=== PATIENT | female | born 1950 | race Caucasian/White ===

== ENCOUNTER 2017-06-10 12:24 | Inpatient (IN) ==
[2017-06-10 14:01] LABS: Basophils % 0.1 %; Eosinophils # 0.1 K/mcL (0.0-0.6); Eosinophils % 0.9 %; Hematocrit 45.5 % (35.3-44.9); Immature Granulocytes % 0.4 % (0-4); Lymphocytes # 2.7 K/mcL (0.6-4.6); Lymphocytes % 22.8 %; Mean Corpuscular HGB Conc 30.8 g/dL (31.6-35.5); Mean Corpuscular Hemoglobin 28.5 pg (28.0-33.3); Mean Corpuscular Volume 92.5 fL (83.0-100.0); Mean Platelet Volume 9.1 fL (9.4-12.4); Monocytes % 8.1 %; Neutrophils # 8.2 K/mcL (1.6-8.9); Platelet Count 268 K/mcL (140-400); Red Blood Count 4.92 M/mcL (3.82-4.97); Red Cell Distribution Width 15.6 % (11.5-14.5); Segmented Neutrophils % 67.7 %
--- NOTE | 2017-06-10 14:11 | Emergency Department Note ---
Disposition Clinical Impression: Fracture of right ankle Qualifiers: Encounter type: initial encounter Fracture type: closed Qualified Code(s): S82.891A - Other fracture of right lower leg, initial encounter for closed fracture Disposition: Admitted As Inpatient Condition: Fair Referrals: Oumar Flanagan MD [Primary Care Provider] - Time of Disposition: 14:14 General Adult HPI - General Chief complaint: ED Extremity Injury, Lower Stated complaint: "broken ankle yesterday/sent by Dr. Garcia Time Seen by Provider: 06/10/17 13:14 Source: patient Limitations: no limitations Nursing Notes Reviewed: Yes Vital Signs Reviewed: Yes - History of Present Illness HPI Narrative: 67-year-old female sent to the emergency department from director of primary office for admission to the hospital. Yesterday she had a mechanical fall and suffered a fracture of her right ankle. She was seen at another facility and referred to see Dr. garcia today. After evaluating the imaging he decided that she needed surgical repair. She is having trouble maneuvering at home and wanted her admitted to the hospital to prepare for surgery tomorrow. She was therefore sent to the emergency department. Patient denies any other injuries with the incident. Onset (ago): day(s) Location: lower extremity Pain Severity: moderate Pain Scale: 9 Quality: aching Consistency: constant Improves with: nothing Worsens with: nothing Associated symptoms: Reports: denies other symptoms Treatments Prior to Arrival: none - Related Data Home Medications Medication Instructions Recorded Confirmed Olmesartan Medoxomil [Benicar] 40 mg PO DAILY 11/27/16 06/10/17 Pantoprazole Sodium [Protonix] 20 mg PO DAILY 11/27/16 06/10/17 clonazePAM [Clonazepam] 1 mg PO BID 11/27/16 06/10/17 Aspirin [Lo-Dose Aspirin EC] 81 mg PO DAILY 06/10/17 06/10/17 Levothyroxine [Synthroid] 125 mcg PO DAILY 06/10/17 06/10/17 Allergies Allergy/AdvReac Type Severity Reaction Status Date / Time alprazolam [From Xanax] Allergy Rash Verified 06/10/17 13:54 Amoxicillin Allergy Hives Verified 06/10/17 13:54 celecoxib [From Celebrex] Allergy Hives Verified 06/10/17 13:54 cephalexin [From Keflex] Allergy Hives Verified 06/10/17 13:54 ciprofloxacin Allergy Difficulty Verified 06/10/17 13:54 Breathing codeine Allergy Difficulty Verified 06/10/17 13:54 Breathing iodine Allergy Hives Verified 06/10/17 13:54 levofloxacin [From Levaquin] Allergy HIVES, Verified 06/10/17 13:54 DIFFICULTY BREATHING lidocaine Allergy Seizure Verified 06/10/17 13:54 metronidazole [From Flagyl] Allergy ITCH,DIFFICULTY Verified 06/10/17 13:54 BREATHING midazolam [From Versed] Allergy STINGING Verified 06/10/17 13:54 SKIN Oxycodone [From Percocet] Allergy DRY THROAT Verified 06/10/17 13:54 Penicillins Allergy Hives Verified 06/10/17 13:54 rofecoxib [From Vioxx] Allergy Hives Verified 06/10/17 13:54 shellfish derived Allergy Anaphylaxis Verified 06/10/17 13:54 [place] Allergy Anaphylaxis Verified 06/10/17 13:54 Sulfa (Sulfonamide Allergy HIVES, Verified 06/10/17 13:54 Antibiotics) DIFFICULTY IN BREATHE morphine AdvReac HALLUCINATE Verified 06/10/17 13:54 All systems ED: reviewed and negative except as stated. Constitutional: Denies: fever Cardiovascular: Denies: chest pain, palpitations Past Medical History - Past Medical History Attestation: Yes The following information was validated with the patient. Medical history: Reports: arthritis, fibromyalgia, GERD, hypertension, osteoporosis, other Surgical history: Reports: colectomy Psychiatric history: Reports: anxiety, depression, panic disorder - Social History Smoking Status: Never smoker Smokeless Tobacco Status: No Alcohol use: Reports: none Drug use: Reports: none Physical Exam - General Limitations: no limitations General appearance: alert - Head Head exam: atraumatic, normocephalic - Eye Eye exam: Present: normal appearance - ENT ENT exam: normal exam, normal oropharynx - Neck Neck exam: Present: normal inspection - Chest Chest inspection: Present: normal inspection, symmetric chest wall rise - Respiratory Respiratory exam: Present: normal lung sounds bilaterally. Absent: respiratory distress - Cardiovascular Cardiovascular exam: Present: regular rate - Abdominal Exam Abdominal exam: Present: soft, Non-Tender - Expanded Lower Extremity Exam 1 - tender Ankle exam: Present: other (Lower leg and foot are in a rigid brace placed by the orthopedist. Dorsal pedal pulses present.) - Neurological Exam Neurological exam: Present: alert, oriented X3 - Psychiatric Psychiatric exam: Present: normal affect - Skin Skin exam: Present: warm, dry Course - Reevaluation(s) Reevaluation #1: Discussed with the hospitalist for admission Time: 14:14 Vital Signs Temperature 99.6 F 06/10/17 12:29 Pulse Rate 90 06/10/17 12:29 Respiratory Rate 18 06/10/17 12:29 Blood Pressure 170/93 06/10/17 12:29 O2 Sat by Pulse Oximetry 94 06/10/17 12:29 Temperature 99.6 F 06/10/17 12:29 Pulse Rate 90 06/10/17 12:29 Respiratory Rate 18 06/10/17 12:29 Blood Pressure 170/93 06/10/17 12:29 O2 Sat by Pulse Oximetry 94 06/10/17 12:29 Oxygen Delivery Oxygen Delivery Room Air Medical Decision Making - Lab Data Result diagrams: 06/10/17 13:42 Lab Results 06/10/17 Range/Units 13:42 WBC 12.0 H (4.3-11.1) K/mcL RBC 4.92 (3.82-4.97) M/mcL Hgb 14.0 (11.5-15.4) g/dL Hct 45.5 H (35.3-44.9) % MCV 92.5 (83.0-100.0) fL MCH 28.5 (28.0-33.3) pg MCHC 30.8 L (31.6-35.5) g/dL RDW 15.6 H (11.5-14.5) % Plt Count 268 (140-400) K/mcL MPV 9.1 L (9.4-12.4) fL Immature Gran % 0.4 (0-4) % Seg Neutrophils % 67.7 % Lymphocytes % 22.8 % Monocytes % 8.1 % Eosinophils % 0.9 % Basophils % 0.1 % Neutrophils # 8.2 (1.6-8.9) K/mcL Lymphocytes # 2.7 (0.6-4.6) K/mcL Monocytes # 1.0 (0.0-1.3) K/mcL Eosinophils # 0.1 (0.0-0.6) K/mcL Basophils # 0.0 (0.0-0.2) K/mcL
[2017-06-10 14:21] LABS: BUN/Creatinine Ratio 21 (6-26); Blood Urea Nitrogen 16 mg/dL (8-23); Calcium 9.2 mg/dL (8.6-10.3); Carbon Dioxide 27 mEq/L (23-29); Chloride 107 mEq/L (98-107); Glucose 105 mg/dL (70-105); Osmolality,Calculated 296 (280-300); Potassium 3.6 mEq/L (3.5-5.1); Sodium 142 mEq/L (136-145); eGFR For African Americans > 60 (> 60); eGFR For Non-African Americans > 60 (> 60)
[2017-06-10] MEDS ORDERED: traMADol 50 MG TABLET PO ONE (14:30)
[2017-06-10] MEDS ORDERED: Ondansetron 4 MG/2 ML VIAL IVP PRN (14:53)
[2017-06-10] MEDS ORDERED: Naloxone 0.4 MG/ML INJ IVP PRN (14:53)
[2017-06-10] MEDS ORDERED: *HR* HYDROcodone/Acet 5/325 mg TABLET PO PRN (14:53)
--- NOTE | 2017-06-10 15:12 | Internal Med History&Physical ---
Date of Encounter: 06/10/17 Time of Encounter: 14:00 Assessment and Plan (1) Fracture of right ankle Current visit: Yes Status: Acute place the pt into Med Surg for observation I could not find any records here to review regarding her Ankle fx will obtain images [facility] and Dr. Garcia office for now continue symptomatic and supportive care NPO after midnight IV hydration IV pain medication is needed Podiatry on board possible ankle repair in AM Qualifiers: Encounter type: initial encounter Fracture type: closed Qualified Code(s) : S82.891A - Other fracture of right lower leg, initial encounter for closed fracture (2) Right ankle pain Current visit: Yes Status: Acute Qualifiers: Chronicity: acute Qualified Code(s): M25.571 - Pain in right ankle and joints of right foot (3) HTN (hypertension) Current visit: Yes Status: Acute Fairly controlled to pain resumed on her home medications we will give her hydralazine IV PRN for uncontrolled blood pressure Qualifiers: Hypertension type: essential hypertension Qualified Code(s): I10 - Essential (primary) hypertension (4) Anxiety Current visit: Yes Status: Acute Resumed home medications Internal Medicine - H&P: HPI Chief complaint: Rt ankle pain Admitted From: Emergency Dept Plans for Post Hospital Care: Home History of present illness: Ms. Cox is a 67 year old female with known PMH of HTN, DJD, Osteoporosis, Hypothyroidism and anxiety who presented to ER with Rt ankle pain since yesterday. Pt had a fall at her home while she stepped in a hole, her ankle got twisted and fell down. Since then pt has been having severe Rt ankle pain and unbale to bare any weight. Pt went to local urgent care center, where she found to have Rt ankle fx. So pt was placed on Split and recommend to f/u with Senior Payroll Administrator. Pt was seen by Dr. Garcia at his office today, and recommend to admitted under hospitalist service here. He is planning on doing ankle repair in AM/ Past Med Surg Social Fam HX - Past Medical History Medical history: arthritis, fibromyalgia, GERD, hypertension, osteoporosis, other Psychiatric history: anxiety, depression, panic disorder - Past Surgical History Surgical History: colectomy - Social History Smoking Status: Never smoker Smokeless Tobacco Status: No Alcohol use: none Drug use: none - Family History Daughter Living Status: Still Living Hx Family Endocrine Disorder: Yes Internal Medicine - H&P: Meds Olmesartan Medoxomil [Benicar] 40 mg PO DAILY 11/27/16 [History] Pantoprazole Sodium [Protonix] 20 mg PO DAILY 11/27/16 [History] clonazePAM [Clonazepam] 1 mg PO BID 11/27/16 [History] Aspirin [Lo-Dose Aspirin EC] 81 mg PO DAILY 06/10/17 [History] Levothyroxine [Synthroid] 125 mcg PO DAILY 06/10/17 [History] 3 Allergy/AdvReac Type Severity Reaction Status Date / Time alprazolam [From Xanax] Allergy Rash Verified 06/10/17 13:54 Amoxicillin Allergy Hives Verified 06/10/17 13:54 celecoxib [From Celebrex] Allergy Hives Verified 06/10/17 13:54 cephalexin [From Keflex] Allergy Hives Verified 06/10/17 13:54 ciprofloxacin Allergy Difficulty Verified 06/10/17 13:54 Breathing codeine Allergy Difficulty Verified 06/10/17 13:54 Breathing iodine Allergy Hives Verified 06/10/17 13:54 levofloxacin [From Levaquin] Allergy HIVES, Verified 06/10/17 13:54 DIFFICULTY BREATHING lidocaine Allergy Seizure Verified 06/10/17 13:54 metronidazole [From Flagyl] Allergy ITCH,DIFFICULTY Verified 06/10/17 13:54 BREATHING midazolam [From Versed] Allergy STINGING Verified 06/10/17 13:54 SKIN Oxycodone [From Percocet] Allergy DRY THROAT Verified 06/10/17 13:54 Penicillins Allergy Hives Verified 06/10/17 13:54 rofecoxib [From Vioxx] Allergy Hives Verified 06/10/17 13:54 shellfish derived Allergy Anaphylaxis Verified 06/10/17 13:54 [place] Allergy Anaphylaxis Verified 06/10/17 13:54 Sulfa (Sulfonamide Allergy HIVES, Verified 06/10/17 13:54 Antibiotics) DIFFICULTY IN BREATHE morphine AdvReac HALLUCINATE Verified 06/10/17 13:54 All Systems PM: A 10-system review of systems was performed and is negative for pertinent findings except as documented above in the HPI. Review of systems: All the systems are reviewed everything is benign except the systems and symptoms I mentioned in the history of present illness - Constitutional Vitals: Temp Pulse Resp BP Pulse Ox 99.6 F 90 18 170/93 94 06/10/17 12:29 06/10/17 12:29 06/10/17 12:29 06/10/17 12:29 06/10/17 12:29 General appearance: Present: mild distress (Pain), A&O X 3, answers questions appropriately - Head Head exam: Present: atraumatic, normal inspection - Neck Neck exam general surgery: Present: supple. Absent: tenderness - Respiratory Respiratory exam: Present: decreased breath sounds. Absent: rales, respiratory distress, rhonchi, wheezes - Cardiovascular Cardiovascular exam: Present: RRR, +S1, +S2. Absent: tachycardia - GI/Abdominal GI/Abdominal exam: Present: normal bowel sounds, soft. Absent: rebound, rigid, tenderness - Extremities Exam Extremities exam: Present: tenderness (Right ankle region). Absent: calf tenderness, pedal edema Additional comments: Splint placed on her right ankle.. able to wiggle her toes in both feet - Back Exam Back exam: Absent: CVA tenderness (L), CVA tenderness (R) - Neurological Exam Neurological exam: Present: alert, oriented X3 - Psychiatric Psychiatric exam: Present: normal affect, normal mood Internal Med - H&P Results - Labs CBC & Chem 7: 06/10/17 13:42 06/10/17 13:42
[2017-06-10] MEDS ORDERED: *HR* FentaNYL (PF) 100 MCG/2 ML VIAL IVP PRN (15:27)
[2017-06-10] MEDS: 0.9 % Sodium Chloride 1,000 ML IVC SCH (16:08)
[2017-06-10] MEDS: Ketorolac 15 MG/ML VIAL IVP PRN (18:30)
[2017-06-11] MEDS: Ketorolac 15 MG/ML VIAL IVP PRN ×3 (00:32→13:12)
[2017-06-11] MEDS: 0.9 % Sodium Chloride 1,000 ML IVC SCH (00:33)
[2017-06-11 01:18] LABS: Basophils % 0.2 %; Eosinophils # 0.2 K/mcL (0.0-0.6); Eosinophils % 1.6 %; Hematocrit 38.2 % (35.3-44.9); Immature Granulocytes % 0.3 % (0-4); Lymphocytes # 2.7 K/mcL (0.6-4.6); Lymphocytes % 26.5 %; Mean Corpuscular HGB Conc 31.4 g/dL (31.6-35.5); Mean Corpuscular Hemoglobin 28.5 pg (28.0-33.3); Mean Corpuscular Volume 90.7 fL (83.0-100.0); Mean Platelet Volume 9.2 fL (9.4-12.4); Monocytes # 0.8 K/mcL (0.0-1.3); Neutrophils # 6.4 K/mcL (1.6-8.9); Platelet Count 231 K/mcL (140-400); Red Blood Count 4.21 M/mcL (3.82-4.97); Red Cell Distribution Width 15.7 % (11.5-14.5); Segmented Neutrophils % 63.4 %
[2017-06-11 01:36] LABS: BUN/Creatinine Ratio 20 (6-26); Blood Urea Nitrogen 14 mg/dL (8-23); Calcium 8.1 mg/dL (8.6-10.3); Carbon Dioxide 24 mEq/L (23-29); Chloride 110 mEq/L (98-107); Glucose 112 mg/dL (70-105); Osmolality,Calculated 291 (280-300); Potassium 3.8 mEq/L (3.5-5.1); Sodium 140 mEq/L (136-145); eGFR For African Americans > 60 (> 60); eGFR For Non-African Americans > 60 (> 60)
[2017-06-11 09:23] LABS: Bilirubin,Urine Negative (Negative); Blood,Urine Negative (Negative); Clarity,Urine Clear (Clear); Color,Urine Yellow (Yellow); Glucose,Urine (UA) Normal (Normal); Ketones,Urine Negative (Negative); Leukocyte Esterase,Urine Small (Negative); Nitrite,Urine Negative (Negative); Protein,Urine Negative (Neg-Trace); Specific Gravity,Urine 1.007 (1.010-1.025); Urobilinogen,Urine Normal (Normal)
[2017-06-11 09:26] LABS: Bacteria,Urine None Seen per hpf (None-Few); Hyaline Casts,Urine None Seen per lpf (None-Few); RBC,Urine 0-3 per hpf (0-3); Squamous Epithelial Cell,Urine Many per lpf (None-Few); WBC,Urine 15-30 per hpf (0-3)
[2017-06-11] MEDS: Acetaminophen 325 MG TABLET PO PRN (10:22)
--- NOTE | 2017-06-11 10:51 | Internal Med Progress Note ---
<Margarito Shelby - Last Filed: 06/11/17 13:51> Date of Encounter: 06/11/17 Time of Encounter: 10:49 - Assessment and plan (1) Fracture of right ankle Current Visit: Yes Status: Acute Assessment and plan: Patient was admitted to the hospital for a right ankle fracture It is my understanding of the patient was sent in by Dr. kaufman for admission and possible surgical repair Patient has been nothing by mouth since midnight We will continue with IV pain medication when necessary Surgical repair per podiatry Qualifiers: Encounter type: initial encounter Fracture type: closed Qualified Code(s) : S82.891A - Other fracture of right lower leg, initial encounter for closed fracture (2) Right ankle pain Current Visit: Yes Status: Acute Assessment and plan: Secondary to ankle fracture. Qualifiers: Chronicity: acute Qualified Code(s): M25.571 - Pain in right ankle and joints of right foot (3) HTN (hypertension) Current Visit: Yes Status: Acute Assessment and plan: Patient's blood pressure is reasonably controlled Continue with home medications. Hydralazine IV when necessary has been ordered for uncontrolled hypertension. Qualifiers: Hypertension type: essential hypertension Qualified Code(s): I10 - Essential (primary) hypertension (4) Anxiety Current Visit: Yes Status: Acute Assessment and plan: Continue with home medications. - Subjective Interval history: Patient states that her pain is been significantly better. She states that she is not feeling better overall since her pain is under control. Patient states that she injured her right ankle when she was in her backyard and she fell by getting her foot stuck in a hole. Patient states that her understanding is that she has a surgery add-on and will only allow Dr. Kaufman to operate on her. - Constitutional Vitals: Temp Pulse Resp BP Pulse Ox 98.4 F 77 16 158/77 94 06/11/17 07:30 06/11/17 07:30 06/11/17 07:30 06/11/17 07:30 06/11/17 07:30 General appearance: Present: mild distress (Pain), A&O X 3, answers questions appropriately - Head Head exam: Present: atraumatic, normocephalic - Neck Neck exam general surgery: Present: full ROM, normal inspection, trachea midline - Respiratory Respiratory exam: Present: CTAB. Absent: accessory muscle use, rales, rhonchi, wheezes - Cardiovascular Cardiovascular exam: Present: RRR, +S1, +S2. Absent: diastolic murmur, gallop, rubs, systolic murmur - GI/Abdominal GI/Abdominal exam: Present: normal bowel sounds, soft, no peritoneal signs. Absent: distended, tenderness - Extremities Exam Extremities exam: Present: warm. Absent: pedal edema, tenderness Additional comments: Patient's right foot is in a boot. - Neurological Exam Neurological exam: Present: alert, oriented X3, no focal deficits. Absent: facial droop, speech deficit - Psychiatric Psychiatric exam: Present: normal affect, normal mood - Skin Skin exam: Present: dry, intact, warm Internal Medicine: Result - Labs CBC & Chem 7: 06/11/17 00:58 06/11/17 00:58 Labs: Short CBC 06/11/17 Range/Units 00:58 WBC 10.0 (4.3-11.1) K/mcL Hgb 12.0 D (11.5-15.4) g/dL Hct 38.2 (35.3-44.9) % Plt Count 231 (140-400) K/mcL Neutrophils # 6.4 (1.6-8.9) K/mcL BMP 06/11/17 00:58 Sodium 140 Potassium 3.8 Chloride 110 H Carbon Dioxide 24 BUN 14 Creatinine 0.71 Glucose 112 H Calcium 8.1 L Urine 06/11/17 Range/Units 09:00 Urine Color Yellow (Yellow) Urine Clarity Clear (Clear) Urine pH 7.0 (5.0-8.0) pH Units Ur Specific [place] 1.007 L (1.010-1.025) Urine Protein Negative (Neg-Trace) mg/dL Urine Glucose (UA) Normal (Normal) mg/dL Consult Discharge Plan - Plan Referrals: Oumar Flanagan MD [Primary Care Provider] - <Eliel Stein - Last Filed: 06/11/17 18:18> Date of Encounter: 06/11/17 - Assessment and plan (1) Fracture of right ankle Current Visit: Yes Status: Acute Qualifiers: Encounter type: initial encounter Fracture type: closed Qualified Code(s) : S82.891A - Other fracture of right lower leg, initial encounter for closed fracture (2) HTN (hypertension) Current Visit: Yes Status: Acute Qualifiers: Hypertension type: essential hypertension Qualified Code(s): I10 - Essential (primary) hypertension (3) Avulsion of soft tissue of left lower leg Current Visit: No Status: Acute Qualifiers: Encounter type: initial encounter Qualified Code(s): S81.802A - Unspecified open wound, left lower leg, initial encounter (4) Anxiety Current Visit: Yes Status: Acute - Constitutional Vitals: Temp Pulse Resp BP Pulse Ox 97.7 F 100 16 179/84 96 06/11/17 11:04 06/11/17 16:52 06/11/17 16:52 06/11/17 16:52 06/11/17 16:52 Internal Medicine: Result - Labs CBC & Chem 7: 06/11/17 00:58 06/11/17 00:58 Labs: Short CBC 06/11/17 Range/Units 00:58 WBC 10.0 (4.3-11.1) K/mcL Hgb 12.0 D (11.5-15.4) g/dL Hct 38.2 (35.3-44.9) % Plt Count 231 (140-400) K/mcL Neutrophils # 6.4 (1.6-8.9) K/mcL BMP 06/11/17 00:58 Sodium 140 Potassium 3.8 Chloride 110 H Carbon Dioxide 24 BUN 14 Creatinine 0.71 Glucose 112 H Calcium 8.1 L Urine 06/11/17 Range/Units 09:00 Urine Color Yellow (Yellow) Urine Clarity Clear (Clear) Urine pH 7.0 (5.0-8.0) pH Units Ur Specific [place] 1.007 L (1.010-1.025) Urine Protein Negative (Neg-Trace) mg/dL Urine Glucose (UA) Normal (Normal) mg/dL - Impressions Impressions Fluoroscopy 06/11/17 00:00 IMPRESSION: Intraprocedural fluoroscopic spot images as above. See separate procedure report for more information. D/ / 06/11/2017 18:07:25 José Miguel Allan MD / dulce Interpreting Provider: José Miguel Allan MD - Attending Attestation I examined this patient and my medical decision-making was reviewed with the Resident Physician on 06/11/17. I agree with the documented findings, disposition and treatment plan as described except to the extent set forth below. Ms Cox is currently admitted for acute ankle fracture. She remains moderate to high risk due to potential for worsening clinical status. Ms Cox is having a lot of pain. She is to go to OR later today. No fever or chills. Exam Alert Mod distress due to pain Mucus membranes dry Heart not tachy No wheeze I/P 1. Ankle fracture Further diagnoses and plan as above.
[2017-06-11] MEDS ORDERED: *HR* HYDROmorphone 2 MG TABLET PO PRN (13:47)
--- NOTE | 2017-06-11 15:09 | Podiatry Consult Note ---
Date of Encounter: 06/11/17 Time of Encounter: 15:08 Assessment and Plan (1) Fracture of right ankle Current visit: Yes Status: Acute The fracture was discussed with the patient at length and the treatment plan as well. The surgery of open reduction, internal fixation of the right bimalleolar ankle fracture was discussed and explained to the patient in depth. It was decided to perform the surgery today.Patient was informed of the risks and complications of surgery. These may include but are not limited to the following; nerve damage, numbness, tingling, RSD/CRPS, loss of motor function, loss of toe, loss of limb, loss of life, ischemia, wound healing issues, infection, scarring, keloid formation, continued pain, arthritis, non-union, mal-union, prominent hardware, displaced hardware, reaction to hardware, the need to remove hardware, bruising, continued limp, the need for future surgery, over correction, under correction, chronic swelling, the need for physical therapy, stiffness of joints, ulceration, slow healing, wound dehiscence, reaction to implant, reaction to sutures. The patient was informed of the possible conservative treatments available which may include but are not limited to the following: Orthotics, bracing, non -weight bearing, physical therapy, padding, taping, steroid injections, NSAIDS, casting. The patient was given the option to seek a second opinion. It was explained that surgery is an art and not an exact science therefore results cannot be guaranteed. All the patients questions and concerns were addressed. Patient agrees to have the surgery despite the possible risks and complications. Absolutely no guarantees were given or implied. -Due to the patient's osteopenia and fall risk the patient will need evaluation from physical therapy/occupational therapy prior to discharge. -The patient will likely have to return to a half-way or care facility unless she is cleared by physical therapy/occupational therapy which is not likely. -The patient will need to remain nonweightbearing for at least 6 weeks after the surgery. Qualifiers: Encounter type: initial encounter Fracture type: closed Qualified Code(s) : S82.891A - Other fracture of right lower leg, initial encounter for closed fracture History of Present Illness Chief complaint: ankle fracture, right HPI: Ms. Cox is a 67 year old female who presented to my clinic yesterday with right ankle fracture. The patient related that she had incontinence, dizziness , difficulty getting into her home or moving without the use of a wheelchair. The patient also related a history of hypertension. Due to the patient's dizziness and inability to return home due to her instability the patient was admitted. Past Med Surg Social Fam HX - Past Medical History Medical history: arthritis, fibromyalgia, GERD, hypertension, osteoporosis, other Psychiatric history: anxiety, depression, panic disorder - Past Surgical History Surgical History: colectomy - Social History Smoking Status: Never smoker Smokeless Tobacco Status: No Alcohol use: none Drug use: none - Family History Daughter Living Status: Still Living Hx Family Endocrine Disorder: Yes (DMI) Medications and Allergies Olmesartan Medoxomil [Benicar] 40 mg PO DAILY 11/27/16 [History] Pantoprazole Sodium [Protonix] 20 mg PO DAILY 11/27/16 [History] clonazePAM [Clonazepam] 1 mg PO BID 11/27/16 [History] Aspirin [Lo-Dose Aspirin EC] 81 mg PO DAILY 06/10/17 [History] Levothyroxine [Synthroid] 125 mcg PO DAILY 06/10/17 [History] 3 Allergy/AdvReac Type Severity Reaction Status Date / Time alprazolam [From Xanax] Allergy Rash Verified 06/10/17 13:54 Amoxicillin Allergy Hives Verified 06/10/17 13:54 celecoxib [From Celebrex] Allergy Hives Verified 06/10/17 13:54 cephalexin [From Keflex] Allergy Hives Verified 06/10/17 13:54 ciprofloxacin Allergy Difficulty Verified 06/10/17 13:54 Breathing codeine Allergy Difficulty Verified 06/10/17 13:54 Breathing hydrocodone Allergy Difficulty Verified 06/10/17 16:20 Breathing iodine Allergy Hives Verified 06/10/17 13:54 levofloxacin [From Levaquin] Allergy HIVES, Verified 06/10/17 13:54 DIFFICULTY BREATHING lidocaine Allergy Seizure Verified 06/10/17 13:54 metronidazole [From Flagyl] Allergy ITCH,DIFFICULTY Verified 06/10/17 13:54 BREATHING midazolam [From Versed] Allergy STINGING Verified 06/10/17 13:54 SKIN Oxycodone [From Percocet] Allergy DRY THROAT Verified 06/10/17 13:54 Penicillins Allergy Hives Verified 06/10/17 13:54 rofecoxib [From Vioxx] Allergy Hives Verified 06/10/17 13:54 shellfish derived Allergy Anaphylaxis Verified 06/10/17 13:54 [place] Allergy Anaphylaxis Verified 06/10/17 13:54 Sulfa (Sulfonamide Allergy HIVES, Verified 06/10/17 13:54 Antibiotics) DIFFICULTY IN BREATHE fentanyl AdvReac Mild Itching Verified 06/10/17 16:51 morphine AdvReac HALLUCINATE Verified 06/10/17 13:54 All Systems Reviewed: The remainder of the systems were reviewed and are negative Physical Exam - Constitutional Vitals: Temp Pulse Resp BP Pulse Ox 97.7 F 75 16 171/90 97 06/11/17 11:04 06/11/17 11:04 06/11/17 11:04 06/11/17 11:04 06/11/17 11:04 Exam: Pedal pulses palpable. Capillary fill time intact to digits 1 through 5 bilaterally. There are no open lesions, abrasions, or ulcerations. There is noted be significant ecchymosis along the medial aspect of the right ankle and possible hematoma. Radiographic exam demonstrates dislocation fracture of the right ankle joint, bimalleolar. Pain and edema noted at the bimalleolar ankle fracture site. Patient is able to dorsiflex and plantar flex digits and has sensation intact to light touch. Results - Labs Result Diagrams: 06/11/17 00:58 06/11/17 00:58 Labs: Abnormal lab results MCHC 31.4 g/dL (31.6-35.5) L 06/11/17 00:58 RDW 15.7 % (11.5-14.5) H 06/11/17 00:58 MPV 9.2 fL (9.4-12.4) L 06/11/17 00:58 Chloride 110 mEq/L (98-107) H 06/11/17 00:58 Glucose 112 mg/dL (70-105) H 06/11/17 00:58 Calcium 8.1 mg/dL (8.6-10.3) L 06/11/17 00:58 Ur Specific [place] 1.007 (1.010-1.025) L 06/11/17 09:00 Ur Leukocyte Esterase Small (Negative) H 06/11/17 09:00 Urine Microscopic WBC 15-30 per hpf (0-3) H 06/11/17 09:00 Ur Squamous Epith Cells Many per lpf (None-Few) H 06/11/17 09:00 H & H 06/11/17 Range/Units 00:58 Hgb 12.0 D (11.5-15.4) g/dL Hct 38.2 (35.3-44.9) % All other labs normal. Consult Discharge Plan - Plan Referrals: Oumar Flanagan MD [Primary Care Provider] -
[2017-06-11] MEDS ORDERED: *HR* HYDROmorphone 2 MG TABLET PO ONE (15:17)
--- NOTE | 2017-06-11 15:46 | Anesthesia Evaluation PreOp ---
Date of Encounter: 06/11/17 Time of Encounter: 15:43 - Past History Planned Operation: Right ankle ORIF Cardiac History: Denies any Significant Hx (arthritis, fibromyalgia, GERD, hypertension, osteoporosis Psychiatric history: anxiety, depression, panic disorder), HTN Pulmonary History: Denies Any Significant HX [employer] History: Other (a/d, panicdisorder) Other Medical History: GERD, Other (Fibromyalgia, RA) Anesthesia History: No Prior Anesthetic Complications, Past Anesthesia (olectomy ) : No Alcohol Use: none Drug use: none Medications and Allergies Olmesartan Medoxomil [Benicar] 40 mg PO DAILY 11/27/16 [History] Pantoprazole Sodium [Protonix] 20 mg PO DAILY 11/27/16 [History] clonazePAM [Clonazepam] 1 mg PO BID 11/27/16 [History] Aspirin [Lo-Dose Aspirin EC] 81 mg PO DAILY 06/10/17 [History] Levothyroxine [Synthroid] 125 mcg PO DAILY 06/10/17 [History] 3 Allergy/AdvReac Type Severity Reaction Status Date / Time alprazolam [From Xanax] Allergy Rash Verified 06/10/17 13:54 Amoxicillin Allergy Hives Verified 06/10/17 13:54 celecoxib [From Celebrex] Allergy Hives Verified 06/10/17 13:54 cephalexin [From Keflex] Allergy Hives Verified 06/10/17 13:54 ciprofloxacin Allergy Difficulty Verified 06/10/17 13:54 Breathing codeine Allergy Difficulty Verified 06/10/17 13:54 Breathing hydrocodone Allergy Difficulty Verified 06/10/17 16:20 Breathing iodine Allergy Hives Verified 06/10/17 13:54 levofloxacin [From Levaquin] Allergy HIVES, Verified 06/10/17 13:54 DIFFICULTY BREATHING lidocaine Allergy Seizure Verified 06/10/17 13:54 metronidazole [From Flagyl] Allergy ITCH,DIFFICULTY Verified 06/10/17 13:54 BREATHING midazolam [From Versed] Allergy STINGING Verified 06/10/17 13:54 SKIN Oxycodone [From Percocet] Allergy DRY THROAT Verified 06/10/17 13:54 Penicillins Allergy Hives Verified 06/10/17 13:54 rofecoxib [From Vioxx] Allergy Hives Verified 06/10/17 13:54 shellfish derived Allergy Anaphylaxis Verified 06/10/17 13:54 [place] Allergy Anaphylaxis Verified 06/10/17 13:54 Sulfa (Sulfonamide Allergy HIVES, Verified 06/10/17 13:54 Antibiotics) DIFFICULTY IN BREATHE fentanyl AdvReac Mild Itching Verified 06/10/17 16:51 morphine AdvReac HALLUCINATE Verified 06/10/17 13:54 - Meds/Allergy Pre-op Review Medications Reviewed: Yes Allergies Reviewed: Yes Beta Blockers on Current Med List: No Anesthesia Results - Labs 06/11/17 00:58 06/11/17 00:58 Anesthesia Exam Vital Signs/O2 Sat, Most Current Temp Pulse Resp BP Pulse Ox 97.7 F 75 16 171/90 97 06/11/17 11:04 06/11/17 11:04 06/11/17 11:04 06/11/17 11:04 06/11/17 11:04 NPO (# of Hours): > 8 hrs Pain Scale: 0 Pain Scale Used: Numeric (1 - 10) - HEENT Pupil (Motor): Pupils equal, EOMI Mallampati: II Teeth: Normal Oral Opening: Greater than 3 - [employer] LOC: Oriented [employer] Motor: Normal RUE, Normal LUE, Normal RLE, Normal LLE, Normal Face [employer] Sensory: Normal: RUE, LUE, RLE, LLE, Face - Cardiac Rhythm: Regular Murmur: None JVD: No Carotid Bruit: No - Pulmonary Breath Sounds: bilateral Clear Respiratory Effort: Symmetrical Anesthesia Assess/Plan ASA Score: 3 Modified [place] Scale for Level of Consciousness: Cooperative, oriented, and tranquil Anesthetic Plan: General, Regional Autologous Blood: Yes Monitoring Plan: Standard Monitors Recovery Plan: PACU
[2017-06-11] MEDS ORDERED: Bupivacaine/Clonidine Syringe 1 EACH SYRINGE ONE (16:20)
[2017-06-11] MEDS ORDERED: *HR* Propofol 200 MG/20 ML VIAL IVP ONE (16:21)
[2017-06-11] MEDS ORDERED: *HR* FentaNYL (PF) 100 MCG/2 ML VIAL ONE (16:21)
[2017-06-11] MEDS ORDERED: Ondansetron 4 MG/2 ML VIAL ONE (16:21)
[2017-06-11] MEDS ORDERED: Dexamethasone 4 MG/ML VIAL ONE (16:21)
[2017-06-11] MEDS ORDERED: *HR* Midazolam HCl 2 MG/2 ML VIAL ONE (16:21)
[2017-06-11] MEDS ORDERED: Lidocaine -MPF 2% 2 ML VIAL ONE (16:21)
[2017-06-11] MEDS ORDERED: Ketorolac 30 MG/ML VIAL ONE (16:21)
[2017-06-11] MEDS ORDERED: ROPIVACAINE HCL/PF 0.5% 30 ML VIAL ONE ×2 (16:25→16:28)
[2017-06-11] MEDS ORDERED: Clindamycin 600 MG/50 ML 600 MG/50 ML IV.SOLN IVPB ONE ×2 (16:55→16:56)
[2017-06-11] MEDS ORDERED: *HR* FentaNYL (PF) 100 MCG/2 ML VIAL IVP PRN (17:27)
--- NOTE | 2017-06-11 17:30 | Anesthesia Procedures ---
Date of Encounter: 06/11/17 Time of Encounter: 16:34 Procedures: Anesthesia - Nerve Block Procedure Date: 06/11/17 Time: 16:34 Surgical Procedure: right ankle ORIF Checklist: Correct Patient Identifier, Correct procedure, History checked Correct side: Right Blood Thinner: No Monitor Applied: BP, Pulse Oximetry Supplemental Oxygen via Nasal Cannula (L/min): 2 Sedation: Fentanyl (mcg): 100 Indication: Post Op Analgesia Block Type: Popliteal, Other (abductor canal ) Catheter placed: No Sterile Technique: Yes Ultrasound used: Yes Anatomy identified: Yes Visual spread of Local: Yes Neuro Stimulation: No Nerve Stimulator Range: 0.2 - 0.4 mA Blood on Needle Aspiration: No Smooth Injection of Local: Yes Pain with Injection of Local: No Prep: Chlorhexadine Needle: 21 x 100 mm Stimuplex Local: Ropivacaine (50ml of 0.5% rop plain, 30ml for popiteal, 20ml abductor canal ) Volume (cc): 50 Number of Attempts: 1 Complications: None/effective block Vitals: vss, request block per surgeon
[2017-06-11] MEDS: *HR* Promethazine 25 MG/ML VIAL IVP PRN (18:36)
--- NOTE | 2017-06-11 18:55 | Anesthesia Evaluation Post Op ---
Date of Encounter: 06/11/17 Time of Encounter: 18:54 - Vital Signs Vital Signs: Vital Signs/O2 Sat, Most Current Temp Pulse Resp BP Pulse Ox 98.1 F 89 16 145/92 97 06/11/17 18:44 06/11/17 18:44 06/11/17 18:44 06/11/17 18:44 06/11/17 18:44 - Lungs Lungs: Clear Ascult./Percussion - Airway Airway: Non-obstructed - Cardiovascular Regular Rate - Mental Status Mental Status: Alert & Oriented, Answers Appropriately - Pain Pain Scale: 0 Pain Scale used: Numeric (1 - 10) - Nausea Vomiting Nausea Vomiting: Not Present - Hydration Hydration: Ice chips, Mccain catheter - Discharge PostOp Status: Transfer Patient to floor
[2017-06-12 01:55] LABS: Hematocrit 37.7 % (35.3-44.9); Hemoglobin 12.2 g/dL (11.5-15.4); Immature Granulocytes % 0.4 % (0-4); Lymphocytes # 0.9 K/mcL (0.6-4.6); Lymphocytes % 9.3 %; Mean Corpuscular HGB Conc 32.4 g/dL (31.6-35.5); Mean Corpuscular Hemoglobin 29.1 pg (28.0-33.3); Mean Platelet Volume 9.2 fL (9.4-12.4); Monocytes # 0.2 K/mcL (0.0-1.3); Monocytes % 1.7 %; Neutrophils # 8.2 K/mcL (1.6-8.9); Platelet Count 228 K/mcL (140-400); Red Blood Count 4.19 M/mcL (3.82-4.97); Segmented Neutrophils % 88.6 %
[2017-06-12 02:12] LABS: BUN/Creatinine Ratio 16 (6-26); Blood Urea Nitrogen 10 mg/dL (8-23); Calcium 8.3 mg/dL (8.6-10.3); Carbon Dioxide 25 mEq/L (23-29); Chloride 110 mEq/L (98-107); Glucose 148 mg/dL (70-105); Osmolality,Calculated 294 (280-300); Potassium 4.3 mEq/L (3.5-5.1); Sodium 141 mEq/L (136-145); eGFR For African Americans > 60 (> 60); eGFR For Non-African Americans > 60 (> 60)
[2017-06-12] MEDS: Acetaminophen 325 MG TABLET PO PRN (06:44)
[2017-06-12] MEDS: Aspirin 81 MG TAB.CHEW PO SCH (08:24)
--- NOTE | 2017-06-12 08:50 | Operative Note ---
Date of procedure: 06/11/17 Pre-op diagnosis: Right ankle fracture with subluxation/syndesmotic injury. Post-op diagnosis: same Procedure: Open reduction, internal fixation of right ankle fracture. Open repair of syndesmosis/subluxation. Implants: Tad plate with associated screws Complications: None Anesthesia: DESTINEY Surgeon: John Garcia Was there an occupational therapist's assistant present: No Estimated blood loss (cc): 10 Specimen: none Condition: stable Disposition: floor Procedure in Detail: The patient was administered IV antibiotics. The patient was transported to the operative room and placed on operating table in the position. Following general anesthesia the foot was scrubbed prepped and draped in the usual aseptic fashion. A timeout was performed. The lower extremity was raised to 60 degrees for hemostasis and exsanguinated utilizing an Esmarch bandage. The pneumatic tourniquet was inflated. The leg was lowered to the table. An incision was made over the fibula and deepened through subcutaneous tissue with care taken to identify and retract all vital neurovascular structures. The fibula was reduced utilizing a lobster claw. Once the fibula was reduced and fixated with a neutralization plate the attention was directed to the medial malleolus. A small incision was made over the medial malleolus and deepened through subcutaneous tissue with care taken to identify and retract all vital neurovascular structures. 2 guidewires were placed in the medial malleolus screw fixation was placed utilizing the guidewires. After sufficient fixation was noted at the medial malleolus the attention was directed to the syndesmosis. The syndesmosis was tested and noted to be insufficient, an open syndesmotic repair was performed and 2 screws were then placed to reduce the syndesmosis. Due to the patient's osteopenic bone 2 screws were utilized. In general most of the patient's bone was very osteopenic. The incision sites were then irrigated with copious amounts of normal saline and closed in a layered fashion. A dry sterile dressing was applied. The pneumatic tourniquet was deflated and a hyperemic response was noted to all digits. The patient was placed in a cam boot. The patient tolerated the procedure and anesthesia well and was transported to the recovery room with vital signs stable and vascular status intact to both feet. The patient will be readmitted per anesthesia. The patient will keep the dressings clean, dry, intact until the follow-up appointment in 1-2 weeks. The patient's weightbearing status will be strict nonweightbearing. The patient will need a physical therapy/occupational therapy consult. Patient may need to go to a care facility after surgical intervention. The patient will need to follow up with me 1 week after discharge.
--- NOTE | 2017-06-12 08:58 | Internal Med Progress Note ---
<Margarito Shelby - Last Filed: 06/12/17 08:56> Date of Encounter: 06/12/17 Time of Encounter: 08:56 - Assessment and plan (1) Fracture of right ankle Current Visit: Yes Status: Acute Assessment and plan: Patient was admitted to the hospital for a right ankle fracture Patient has had surgical repair by Dr Brownlee. Patient is to remain nonweight bearing on the right lower extremity. PO Dilaudid for pain Patient will need to go to a rehab facility when D/C. Due to it being Wednesday this may not happen until Wednesday. Qualifiers: Encounter type: initial encounter Fracture type: closed Qualified Code(s) : S82.891A - Other fracture of right lower leg, initial encounter for closed fracture (2) Right ankle pain Current Visit: Yes Status: Acute Assessment and plan: Secondary to ankle fracture. Ankle pain has improved after surgery and having the a nerve block Qualifiers: Chronicity: acute Qualified Code(s): M25.571 - Pain in right ankle and joints of right foot (3) HTN (hypertension) Current Visit: Yes Status: Acute Assessment and plan: Patient's blood pressure is reasonably controlled Continue with home medications. Hydralazine IV when necessary has been ordered for uncontrolled hypertension. Qualifiers: Hypertension type: essential hypertension Qualified Code(s): I10 - Essential (primary) hypertension (4) Anxiety Current Visit: Yes Status: Acute Assessment and plan: Continue with home medications. - Subjective Interval history: Patient states that her pain is been significantly better. She states that her nerve block is still in place and has provided significant relief to her pain in her distal right lower extremity. Patient is in agreement with going to a rehabilitation center when she is discharged. Patient is expressed interest in going to rehabilitation facility that is in [facility]. - Constitutional Vitals: Temp Pulse Resp BP Pulse Ox 98.5 F 73 17 120/67 98 06/12/17 06:33 06/12/17 06:33 06/12/17 06:33 06/12/17 06:33 06/12/17 06:33 General appearance: Present: mild distress (Pain), A&O X 3, answers questions appropriately - Head Head exam: Present: atraumatic, normocephalic - Neck Neck exam general surgery: Present: full ROM, normal inspection, trachea midline - Respiratory Respiratory exam: Present: CTAB. Absent: accessory muscle use, rales, rhonchi, wheezes - Cardiovascular Cardiovascular exam: Present: RRR, +S1, +S2. Absent: diastolic murmur, gallop, rubs, systolic murmur - GI/Abdominal GI/Abdominal exam: Present: normal bowel sounds, soft, no peritoneal signs. Absent: distended, tenderness - Extremities Exam Extremities exam: Present: warm. Absent: pedal edema, tenderness Additional comments: Patient's right lower extremity is in a boot after having surgery yesterday. - Neurological Exam Neurological exam: Present: altered, oriented X3, no focal deficits. Absent: facial droop, speech deficit - Psychiatric Psychiatric exam: Present: normal affect, normal mood - Skin Skin exam: Present: dry, intact, warm Internal Medicine: Result - Labs CBC & Chem 7: 06/12/17 01:03 06/12/17 01:03 Labs: Short CBC 06/12/17 Range/Units 01:03 WBC 9.2 (4.3-11.1) K/mcL Hgb 12.2 (11.5-15.4) g/dL Hct 37.7 (35.3-44.9) % Plt Count 228 (140-400) K/mcL Neutrophils # 8.2 (1.6-8.9) K/mcL BMP 06/12/17 01:03 Sodium 141 Potassium 4.3 Chloride 110 H Carbon Dioxide 25 BUN 10 Creatinine 0.63 Glucose 148 H Calcium 8.3 L Urine 06/11/17 Range/Units 09:00 Urine Color Yellow (Yellow) Urine Clarity Clear (Clear) Urine pH 7.0 (5.0-8.0) pH Units Ur Specific [place] 1.007 L (1.010-1.025) Urine Protein Negative (Neg-Trace) mg/dL Urine Glucose (UA) Normal (Normal) mg/dL - Impressions Impressions Fluoroscopy 06/11/17 00:00 IMPRESSION: Intraprocedural fluoroscopic spot images as above. See separate procedure report for more information. D/ / 06/11/2017 18:07:25 José Miguel Allan MD / [facility] Interpreting Provider: José Miguel Allan MD - VTE Documentation of Mechanical Device: Intermittent pneumatic compression device Consult Discharge Plan - Plan Referrals: Oumar Flanagan MD [Primary Care Provider] - <Eliel Stein - Last Filed: 06/12/17 16:17> Date of Encounter: 06/12/17 - Assessment and plan (1) Fracture of right ankle Current Visit: Yes Status: Acute Qualifiers: Encounter type: subsequent encounter Fracture type: closed Qualified Code (s): S82.891D - Other fracture of right lower leg, subsequent encounter for closed fracture with routine healing (2) HTN (hypertension) Current Visit: Yes Status: Acute Qualifiers: Hypertension type: essential hypertension Qualified Code(s): I10 - Essential (primary) hypertension (3) Avulsion of soft tissue of left lower leg Current Visit: No Status: Acute Qualifiers: Encounter type: subsequent encounter Qualified Code(s): S81.802D - Unspecified open wound, left lower leg, subsequent encounter (4) Anxiety Current Visit: Yes Status: Acute - Constitutional Vitals: Temp Pulse Resp BP Pulse Ox 98.0 F 76 16 159/86 95 06/12/17 11:28 06/12/17 11:28 06/12/17 11:28 06/12/17 11:28 06/12/17 11:28 Internal Medicine: Result - Labs CBC & Chem 7: 06/12/17 01:03 06/12/17 01:03 Labs: Short CBC 06/12/17 Range/Units 01:03 WBC 9.2 (4.3-11.1) K/mcL Hgb 12.2 (11.5-15.4) g/dL Hct 37.7 (35.3-44.9) % Plt Count 228 (140-400) K/mcL Neutrophils # 8.2 (1.6-8.9) K/mcL BMP 06/12/17 01:03 Sodium 141 Potassium 4.3 Chloride 110 H Carbon Dioxide 25 BUN 10 Creatinine 0.63 Glucose 148 H Calcium 8.3 L - Impressions Impressions Fluoroscopy 06/11/17 00:00 IMPRESSION: Intraprocedural fluoroscopic spot images as above. See separate procedure report for more information. D/ / 06/11/2017 18:07:25 José Miguel Allan MD / [facility] Interpreting Provider: José Miguel Allan MD - Attending Attestation I examined this patient and my medical decision-making was reviewed with the Resident Physician on 06/12/17. I agree with the documented findings, disposition and treatment plan as described except to the extent set forth below. Ms Cox is currently admitted for acute R ankle fracture s/p ORIF. She remains moderate to high risk due to potential for worsening clinical status. Ms Cox is doing OK. She is requesting to have abx. I explained that she does not need them at this time and we would start them if there was any concern for infection. Also she would have received something around OR. Otherwise she has no new issues. No fever or chills. Had some bleeding this AM and is waiting for podiatry to come see her. Exam alert Comfortable Mucus membranes dry Heart not tachy No wheeze I/P 1. R ankle fracture s/p ORIF 2. HTN Further diagnoses and plan as above.
[2017-06-12] MEDS: clonazePAM 1 MG TABLET PO PRN ×2 (10:02→22:10)
[2017-06-12] MEDS: *HR* HYDROmorphone 2 MG TABLET PO PRN ×3 (11:25→19:48)
[2017-06-12] MEDS: Ketorolac 15 MG/ML VIAL IVP PRN ×2 (13:28→20:54)
[2017-06-13] MEDS: *HR* HYDROmorphone 2 MG TABLET PO PRN ×3 (04:39→23:04)
[2017-06-13] MEDS: Aspirin 81 MG TAB.CHEW PO SCH (07:26)
--- NOTE | 2017-06-13 09:38 | Internal Med Progress Note ---
<HeronGingern - Last Filed: 06/13/17 09:35> Date of Encounter: 06/13/17 Time of Encounter: 09:35 - Assessment and plan (1) Fracture of right ankle Current Visit: Yes Status: Acute Assessment and plan: Patient was admitted to the hospital for a right ankle fracture Patient has had surgical repair by Dr Brownlee. Patient is to remain nonweight bearing on the right lower extremity. PO Dilaudid for pain Patient will need to go to a rehab facility when D/C. Due to it being Wednesday this may not happen until Wednesday. Qualifiers: Encounter type: subsequent encounter Fracture type: closed Qualified Code (s): S82.891D - Other fracture of right lower leg, subsequent encounter for closed fracture with routine healing (2) Right ankle pain Current Visit: Yes Status: Acute Assessment and plan: Secondary to ankle fracture. Pain is controlled with PO dilaudid Qualifiers: Chronicity: acute Qualified Code(s): M25.571 - Pain in right ankle and joints of right foot (3) HTN (hypertension) Current Visit: Yes Status: Acute Assessment and plan: Patient's blood pressure is reasonably controlled Continue with home medications. Hydralazine IV when necessary has been ordered for uncontrolled hypertension. Qualifiers: Hypertension type: essential hypertension Qualified Code(s): I10 - Essential (primary) hypertension (4) Anxiety Current Visit: Yes Status: Acute Assessment and plan: Continue with home medications. - Subjective Interval history: Patient states that her pain has come back normal for nerve block is worn off. However she does state that the by mouth pain medication has been helping. She states that she had some bleeding to her right foot and her boot had to be removed. She states that she feels like her foot will feel better when it goes back into the throat. Patient plans on going to a rehabilitation center upon discharge. - Constitutional Vitals: Temp Pulse Resp BP Pulse Ox 97.8 F 71 16 113/79 92 06/13/17 06:33 06/13/17 06:33 06/13/17 06:33 06/13/17 06:33 06/13/17 06:33 General appearance: Present: A&O X 3, no acute distress, answers questions appropriately - Head Head exam: Present: atraumatic, normocephalic - Neck Neck exam general surgery: Present: full ROM, normal inspection, trachea midline - Respiratory Respiratory exam: Present: CTAB. Absent: accessory muscle use, rales, rhonchi, wheezes - Cardiovascular Cardiovascular exam: Present: RRR, +S1, +S2. Absent: diastolic murmur, gallop, rubs, systolic murmur - GI/Abdominal GI/Abdominal exam: Present: normal bowel sounds, soft, no peritoneal signs. Absent: distended, tenderness - Extremities Exam Extremities exam: Present: warm. Absent: pedal edema Additional comments: Patient's right foot is in an Octavio wrap after having surgery 2 days ago. Patient has normal sensation in her toes on the right foot. - Neurological Exam Neurological exam: Present: alert, oriented X3, no focal deficits. Absent: facial droop, speech deficit - Psychiatric Psychiatric exam: Present: normal affect, normal mood - Skin Skin exam: Present: dry, intact, warm Internal Medicine: Result - Labs CBC & Chem 7: 06/12/17 01:03 06/12/17 01:03 - VTE Documentation of Mechanical Device: Intermittent pneumatic compression device Consult Discharge Plan - Plan Referrals: Oumar Flanagan MD [Primary Care Provider] - <Eliel Stein - Last Filed: 06/13/17 17:15> Date of Encounter: 06/13/17 - Assessment and plan (1) Fracture of right ankle Current Visit: Yes Status: Acute Qualifiers: Encounter type: subsequent encounter Fracture type: closed Qualified Code (s): S82.891D - Other fracture of right lower leg, subsequent encounter for closed fracture with routine healing (2) HTN (hypertension) Current Visit: Yes Status: Acute Qualifiers: Hypertension type: essential hypertension Qualified Code(s): I10 - Essential (primary) hypertension (3) Avulsion of soft tissue of left lower leg Current Visit: No Status: Acute Qualifiers: Encounter type: subsequent encounter Qualified Code(s): S81.802D - Unspecified open wound, left lower leg, subsequent encounter (4) Anxiety Current Visit: Yes Status: Acute - Constitutional Vitals: Temp Pulse Resp BP Pulse Ox 98.4 F 77 17 159/80 93 06/13/17 15:29 06/13/17 15:29 06/13/17 15:29 06/13/17 15:29 06/13/17 15:29 Internal Medicine: Result - Labs CBC & Chem 7: 03/10/18 01:03 06/12/17 01:03 - Attending Attestation I examined this patient and my medical decision-making was reviewed with the Resident Physician on 06/13/17. I agree with the documented findings, disposition and treatment plan as described except to the extent set forth below. Ms Cox is currently admitted for acute R ankle fracture. She is s/p ORIF. She remains moderate to high risk due to potential for worsening clinical status. Ms Cox is resting comfortably. No fever or chills. To go to SNF for rehab. Had some bleeding last night and boot off at times. Exam alert. Comfortable Mucus membranes dry Heart reg No wheeze I/P 1. R ankle fracture s/p ORIF Further diagnoses and plan as above.
[2017-06-13] MEDS: Ketorolac 15 MG/ML VIAL IVP PRN ×2 (12:54→19:01)
--- NOTE | 2017-06-13 15:18 | Podiatry Progress Note ---
Date of Encounter: 06/13/17 Time of Encounter: 15:16 - Assessment and Plan (1) Fracture of right ankle Current Visit: Yes Status: Acute -Due to the patient's osteopenia and fall risk the patient will need to remain nonweightbearing for approximately 6 weeks after the time of surgery.. -The patient is okay for discharge to care facility. -The patient will need to follow-up within a week of discharge. Qualifiers: Encounter type: subsequent encounter Fracture type: closed Qualified Code (s): S82.891D - Other fracture of right lower leg, subsequent encounter for closed fracture with routine healing Subjective Principal diagnosis: right ankle fracture Interval history: Patient seen at bedside. Patient relates that she is still having some throbbing. Patient denies any nausea, vomiting, fever, chills, shortness of breath, chest pain, or calf pain. Patient relates that her ankle feels more stable and his cam boot. Objective - Vital Signs Vital Signs: Vital Signs Temp Pulse Resp BP Pulse Ox 06/13/17 10:52 98.2 F 74 16 119/74 92 06/13/17 06:33 97.8 F 71 16 113/79 92 06/13/17 00:03 98.3 F 71 17 132/67 91 06/12/17 18:38 97.7 F 85 17 165/82 95 Intake and Output 06/12/17 06/13/17 06/13/17 22:59 07:59 15:59 Intake Total 100 / 100 Output Total 200 / 200 Balance -100 / -100 Intake: Oral 100 / 100 Output: Urine 200 / 200 Other: Meal Lunch Percent of Meal Consumed 50% - Exam Exam: Vascular exam-edema noted, capillary fill time is immediate to digits one through 5 bilaterally. Dermatologic exam-the incision site is no longer draining. No strikethrough noted on the dressing. Neurologic exam-sensation is grossly intact to light touch. Musculoskeletal exam-no pain with manual calf compression. - Lab Result Diagrams: 06/12/17 01:03 06/12/17 01:03 Labs: Abnormal lab results RDW 15.0 % (11.5-14.5) H 06/12/17 01:03 MPV 9.2 fL (9.4-12.4) L 06/12/17 01:03 Chloride 110 mEq/L (98-107) H 06/12/17 01:03 Glucose 148 mg/dL (70-105) H 06/12/17 01:03 Calcium 8.3 mg/dL (8.6-10.3) L 06/12/17 01:03 Ur Specific [place] 1.007 (1.010-1.025) L 06/11/17 09:00 Ur Leukocyte Esterase Small (Negative) H 06/11/17 09:00 Urine Microscopic WBC 15-30 per hpf (0-3) H 06/11/17 09:00 Ur Squamous Epith Cells Many per lpf (None-Few) H 06/11/17 09:00 - VTE Documentation of Mechanical Device: Intermittent pneumatic compression device Consult Discharge Plan - Plan Referrals: Oumar Flanagan MD [Primary Care Provider] -
--- NOTE | 2017-06-13 15:26 | Podiatry Progress Note ---
Date of Encounter: 06/12/17 Time of Encounter: 15:24 - Assessment and Plan (1) Fracture of right ankle Current Visit: Yes Status: Acute -Due to the patient's osteopenia and fall risk the patient will need to remain nonweightbearing for approximately 6 weeks after the time of surgery.. -The patient is okay for discharge to care facility. -The patient will need to follow-up within a week of discharge. Qualifiers: Encounter type: subsequent encounter Fracture type: closed Qualified Code (s): S82.891D - Other fracture of right lower leg, subsequent encounter for closed fracture with routine healing Subjective Principal diagnosis: right ankle fracture Interval history: Patient seen at bedside. Patient relates that she is still having some throbbing. Patient denies any nausea, vomiting, fever, chills, shortness of breath, chest pain, or calf pain. Patient relates that her ankle feels more stable and his cam boot. Objective - Vital Signs Vital Signs: Vital Signs Temp Pulse Resp BP Pulse Ox 06/13/17 10:52 98.2 F 74 16 119/74 92 06/13/17 06:33 97.8 F 71 16 113/79 92 06/13/17 00:03 98.3 F 71 17 132/67 91 06/12/17 18:38 97.7 F 85 17 165/82 95 Intake and Output 06/12/17 06/13/17 06/13/17 22:59 07:59 15:59 Intake Total 100 / 100 Output Total 200 / 200 Balance -100 / -100 Intake: Oral 100 / 100 Output: Urine 200 / 200 Other: Meal Lunch Percent of Meal Consumed 50% - Exam Exam: Vascular exam-edema noted, capillary fill time is immediate to digits one through 5 bilaterally. Dermatologic no strikethrough noted.. Neurologic exam- sensation is grossly intact to light touch. Musculoskeletal exam-no pain with manual calf compression. - Lab Result Diagrams: 06/12/17 01:03 06/12/17 01:03 Labs: Abnormal lab results RDW 15.0 % (11.5-14.5) H 06/12/17 01:03 MPV 9.2 fL (9.4-12.4) L 06/12/17 01:03 Chloride 110 mEq/L (98-107) H 06/12/17 01:03 Glucose 148 mg/dL (70-105) H 06/12/17 01:03 Calcium 8.3 mg/dL (8.6-10.3) L 06/12/17 01:03 Ur Specific [place] 1.007 (1.010-1.025) L 06/11/17 09:00 Ur Leukocyte Esterase Small (Negative) H 06/11/17 09:00 Urine Microscopic WBC 15-30 per hpf (0-3) H 06/11/17 09:00 Ur Squamous Epith Cells Many per lpf (None-Few) H 06/11/17 09:00 - VTE Documentation of Mechanical Device: Intermittent pneumatic compression device Consult Discharge Plan - Plan Referrals: Oumar Flanagan MD [Primary Care Provider] -
[2017-06-13] MEDS: clonazePAM 1 MG TABLET PO PRN (20:13)
[2017-06-13] MEDS: *HR* Heparin 5,000 UNIT/ML VIAL SQ SCH (21:12)
[2017-06-14 03:44] LABS: Basophils % 0.4 %; Eosinophils # 0.2 K/mcL (0.0-0.6); Eosinophils % 2.5 %; Hematocrit 37.6 % (35.3-44.9); Hemoglobin 11.6 g/dL (11.5-15.4); Immature Granulocytes % 0.4 % (0-4); Lymphocytes # 2.7 K/mcL (0.6-4.6); Lymphocytes % 31.7 %; Mean Corpuscular HGB Conc 30.9 g/dL (31.6-35.5); Mean Corpuscular Volume 90.6 fL (83.0-100.0); Mean Platelet Volume 8.8 fL (9.4-12.4); Monocytes # 0.6 K/mcL (0.0-1.3); Monocytes % 6.9 %; Neutrophils # 4.9 K/mcL (1.6-8.9); Platelet Count 252 K/mcL (140-400); Red Blood Count 4.15 M/mcL (3.82-4.97); Red Cell Distribution Width 15.4 % (11.5-14.5); Segmented Neutrophils % 58.1 %
[2017-06-14 04:04] LABS: BUN/Creatinine Ratio 25 (6-26); Blood Urea Nitrogen 17 mg/dL (8-23); Calcium 8.5 mg/dL (8.6-10.3); Carbon Dioxide 27 mEq/L (23-29); Chloride 106 mEq/L (98-107); Glucose 98 mg/dL (70-105); Osmolality,Calculated 288 (280-300); Potassium 3.8 mEq/L (3.5-5.1); Sodium 138 mEq/L (136-145); eGFR For African Americans > 60 (> 60); eGFR For Non-African Americans > 60 (> 60)
[2017-06-14] MEDS: Ketorolac 15 MG/ML VIAL IVP PRN ×3 (04:13→18:41)
[2017-06-14] MEDS: *HR* Heparin 5,000 UNIT/ML VIAL SQ SCH ×3 (06:47→20:27)
[2017-06-14] MEDS: Aspirin 81 MG TAB.CHEW PO SCH (09:00)
[2017-06-14] MEDS: *HR* HYDROmorphone 2 MG TABLET PO PRN ×3 (09:00→20:27)
--- NOTE | 2017-06-14 09:43 | Discharge Summary ---
Date of Encounter: 06/14/17 Time of Encounter: 09:15 - Discharge Diagnosis (1) Fracture of right ankle Priority: Primary Status: Acute Qualifiers: Encounter type: subsequent encounter Fracture type: closed Qualified Code (s): S82.891D - Other fracture of right lower leg, subsequent encounter for closed fracture with routine healing (2) HTN (hypertension) Priority: Secondary Status: Chronic Qualifiers: Hypertension type: essential hypertension Qualified Code(s): I10 - Essential (primary) hypertension (3) Avulsion of soft tissue of left lower leg Priority: Secondary Status: Chronic Qualifiers: Encounter type: subsequent encounter Qualified Code(s): S81.802D - Unspecified open wound, left lower leg, subsequent encounter (4) Anxiety Priority: Secondary Status: Chronic Hospital course: Ms. Cox is a 67 year old female presented to ED with severe ankle pain. She had fallen the day before. She was found to have fracture R ankle and admitted for further evaluation and treatment. Ms Cox was admitted to med surg. She was given pain meds and went to OR for ORIF. She tolerated well and was felt needed SNF at discharge. She will be discharged to SNF for further care. Discharge discussed with: patient, nurse - Time Spent with Patient Total time spent providing and/or coordinating discharge services: 41min - Discharge Medications Prescriptions: HYDROmorphone [Dilaudid] 2 mg PO Q4HR PRN 2 Days #10 tablet PRN Reason: Moderate Pain clonazePAM [Clonazepam] 1 mg PO BID 2 Days #4 tab[facility] Home Medications: Olmesartan Medoxomil [Benicar] 40 mg PO DAILY 11/27/16 [History] Pantoprazole Sodium [Protonix] 20 mg PO DAILY 11/27/16 [History] Aspirin [Lo-Dose Aspirin EC] 81 mg PO DAILY 06/10/17 [History] Levothyroxine [Synthroid] 125 mcg PO DAILY 06/10/17 [History] Acetaminophen [Tylenol] 650 mg PO Q6HR PRN tablet 06/14/17 [Rx] DiphenhydraMINE [Benadryl] 25 mg PO Q6HR PRN capsule 06/14/17 [Rx] HYDROmorphone [Dilaudid] 2 mg PO Q4HR PRN 2 Days #10 tablet 06/14/17 [Rx] clonazePAM [Clonazepam] 1 mg PO BID 2 Days #4 tab.rapdis 06/14/17 [Rx] Allergies/Adverse Reactions: 3 Allergy/AdvReac Type Severity Reaction Status Date / Time alprazolam [From Xanax] Allergy Rash Verified 06/10/17 13:54 Amoxicillin Allergy Hives Verified 06/10/17 13:54 celecoxib [From Celebrex] Allergy Hives Verified 06/10/17 13:54 cephalexin [From Keflex] Allergy Hives Verified 06/10/17 13:54 ciprofloxacin Allergy Difficulty Verified 06/10/17 13:54 Breathing codeine Allergy Difficulty Verified 06/10/17 13:54 Breathing hydrocodone Allergy Difficulty Verified 06/10/17 16:20 Breathing iodine Allergy Hives Verified 06/10/17 13:54 levofloxacin [From Levaquin] Allergy HIVES, Verified 06/10/17 13:54 DIFFICULTY BREATHING lidocaine Allergy Seizure Verified 06/10/17 13:54 metronidazole [From Flagyl] Allergy ITCH,DIFFICULTY Verified 06/10/17 13:54 BREATHING midazolam [From Versed] Allergy STINGING Verified 06/10/17 13:54 SKIN Oxycodone [From Percocet] Allergy DRY THROAT Verified 06/10/17 13:54 Penicillins Allergy Hives Verified 06/10/17 13:54 rofecoxib [From Vioxx] Allergy Hives Verified 06/10/17 13:54 shellfish derived Allergy Anaphylaxis Verified 06/10/17 13:54 [place] Allergy Anaphylaxis Verified 06/10/17 13:54 Sulfa (Sulfonamide Allergy HIVES, Verified 06/10/17 13:54 Antibiotics) DIFFICULTY IN BREATHE fentanyl AdvReac Mild Itching Verified 06/10/17 16:51 morphine AdvReac HALLUCINATE Verified 06/10/17 13:54 Date of admission: 06/12/17 18:17 Primary care physician: Oumar Flanagan, Consults: Sessions Discharging clinician: Eliel Stein Anticipated date of discharge: 06/15/17 - Constitutional Vitals: Temp Pulse Resp BP Pulse Ox 98.3 F 76 18 147/88 95 06/14/17 07:09 06/14/17 07:09 06/14/17 07:09 06/14/17 07:09 06/14/17 07:09 General appearance: Present: A&O X 3, no acute distress, answers questions appropriately - Head Head exam: Present: normocephalic - Eye Eye exam: Present: conjuntiva pink - ENT ENT exam: Present: mucous membranes dry - Respiratory Respiratory exam: Present: CTAB. Absent: rales, rhonchi, wheezes - Cardiovascular Cardiovascular exam: Present: RRR. Absent: tachycardia - GI/Abdominal GI/Abdominal exam: Present: soft. Absent: tenderness - Extremities Exam Extremities exam: Present: warm - Neurological Exam Neurological exam: Present: alert, oriented X3 - Skin Skin exam: Present: dry, warm - Patient Status Disposition: Transfer SNF Condition: Fair Functional capacity at discharge: uses cane/walker Overall status at discharge: patient is progressing back to baseline - Discharge Instructions Follow Up With: Oumar Flanagan MD [Primary Care Provider] - - Diet and Activity Activity: ambulate only with your walker, as per physical therapy, other (Non weight bearing R leg.) - VTE Documentation of Mechanical Device: Intermittent pneumatic compression device
--- NOTE | 2017-06-14 12:47 | Podiatry Progress Note ---
Date of Encounter: 06/14/17 Time of Encounter: 12:15 - Assessment and Plan (1) Fracture of right ankle Current Visit: Yes Status: Acute S/p ORIF right ankle by Dr. Garcia on 06/11/17. Dressing dry and intact. Plan: Remain non weight bearing with cam boot and walker. Keep dressing dry and intact until follow up appointment with Dr. Garcia. F/u with Dr. Garcia in one week. Awaiting insurance authorization for ECF. Will most likely be discharged tomorrow. Qualifiers: Encounter type: subsequent encounter Fracture type: closed Qualified Code (s): S82.891D - Other fracture of right lower leg, subsequent encounter for closed fracture with routine healing Subjective Principal diagnosis: right ankle fracture Interval history: Patient is s/p ORIF right ankle fracture by Dr. Garcia on 06/11/17. Patient is sitting up in chair with dressing dry/intact and cam boot on. Patient rates pain at a 5 out of 10, states the ankle is feeling better. Patient states she has remained non weight bearing. Patient is awaiting insurance authorization at [facility]. No c/o fever or chills. Objective - Vital Signs Vital Signs: Vital Signs Temp Pulse Resp BP Pulse Ox 06/14/17 11:08 98.2 F 80 16 144/82 93 06/14/17 07:09 98.3 F 76 18 147/88 95 06/14/17 00:08 98.0 F 80 17 151/87 94 06/13/17 18:42 98.9 F 84 15 154/83 93 06/13/17 15:29 98.4 F 77 17 159/80 93 Intake and Output 06/13/17 06/14/17 06/14/17 23:59 07:59 15:59 Intake Total 240 / 240 Output Total 550 / 550 400 / 400 Balance 240 / 240 -550 / -550 -400 / -400 Intake: Oral 240 / 240 Output: Urine 550 / 550 400 / 400 Other: Meal Dinner Percent of Meal Consumed 50% # Voids 0 # Urine Diapers 1 - Exam Exam: General appearance: alert awake oriented X 3. Calm and pleasant, no acute distress.. Vascular: No evidence of cyanosis, pallor or rubor, Edema graded at 1+/4, Skin Temperature warm, No calf pain with manual compression. capillary refill time is immediate to digits. Neurologic: Sensation intact with light touch to toes. Postop Exam: S/P Dressing dry and intact, no drainage observed to dressing. - Lab Result Diagrams: 06/14/17 03:25 06/14/17 03:25 Labs: Abnormal lab results MCHC 30.9 g/dL (31.6-35.5) L 06/14/17 03:25 RDW 15.4 % (11.5-14.5) H 06/14/17 03:25 MPV 8.8 fL (9.4-12.4) L 06/14/17 03:25 Calcium 8.5 mg/dL (8.6-10.3) L 06/14/17 03:25 Ur Specific [place] 1.007 (1.010-1.025) L 06/11/17 09:00 Ur Leukocyte Esterase Small (Negative) H 06/11/17 09:00 Urine Microscopic WBC 15-30 per hpf (0-3) H 06/11/17 09:00 Ur Squamous Epith Cells Many per lpf (None-Few) H 06/11/17 09:00 - VTE Documentation of Mechanical Device: Intermittent pneumatic compression device Consult Discharge Plan - Plan Referrals: Oumar Flanagan MD [Primary Care Provider] -
[2017-06-14] MEDS: Acetaminophen 325 MG TABLET PO PRN ×2 (13:58→23:14)
[2017-06-14] MEDS: clonazePAM 1 MG TABLET PO PRN (17:07)
[2017-06-14] MEDS: *HR* Promethazine 25 MG/ML VIAL IVP PRN (18:39)
--- NOTE | 2017-06-14 18:41 | Physician Discharge Referral ---
ExtendedCare Referral Info Provider in Charge after Transfer: PCP Institutional Level of Care: Skilled - Diagnosis (1) Fracture of right ankle Priority: Primary Status: Acute (2) HTN (hypertension) Priority: Secondary Status: Chronic (3) Avulsion of soft tissue of left lower leg Priority: Secondary Status: Chronic (4) Anxiety Priority: Secondary Status: Chronic - Transfer Medications Prescriptions: HYDROmorphone [Dilaudid] 2 mg PO Q4HR PRN 2 Days #10 tablet PRN Reason: Moderate Pain clonazePAM [Clonazepam] 1 mg PO BID 2 Days #4 tab.rapdis Home Medications: Olmesartan Medoxomil [Benicar] 40 mg PO DAILY 11/27/16 [History] Pantoprazole Sodium [Protonix] 20 mg PO DAILY 11/27/16 [History] Aspirin [Lo-Dose Aspirin EC] 81 mg PO DAILY 06/10/17 [History] Levothyroxine [Synthroid] 125 mcg PO DAILY 06/10/17 [History] Acetaminophen [Tylenol] 650 mg PO Q6HR PRN tablet 06/14/17 [Rx] DiphenhydraMINE [Benadryl] 25 mg PO Q6HR PRN capsule 06/14/17 [Rx] HYDROmorphone [Dilaudid] 2 mg PO Q4HR PRN 2 Days #10 tablet 06/14/17 [Rx] clonazePAM [Clonazepam] 1 mg PO BID 2 Days #4 tab.rapdis 06/14/17 [Rx] Allergies/Adverse Reactions: 3 Allergy/AdvReac Type Severity Reaction Status Date / Time alprazolam [From Xanax] Allergy Rash Verified 06/10/17 13:54 Amoxicillin Allergy Hives Verified 06/10/17 13:54 celecoxib [From Celebrex] Allergy Hives Verified 06/10/17 13:54 cephalexin [From Keflex] Allergy Hives Verified 06/10/17 13:54 ciprofloxacin Allergy Difficulty Verified 06/10/17 13:54 Breathing codeine Allergy Difficulty Verified 06/10/17 13:54 Breathing hydrocodone Allergy Difficulty Verified 06/10/17 16:20 Breathing iodine Allergy Hives Verified 06/10/17 13:54 levofloxacin [From Levaquin] Allergy HIVES, Verified 06/10/17 13:54 DIFFICULTY BREATHING lidocaine Allergy Seizure Verified 06/10/17 13:54 metronidazole [From Flagyl] Allergy ITCH,DIFFICULTY Verified 06/10/17 13:54 BREATHING midazolam [From Versed] Allergy STINGING Verified 06/10/17 13:54 SKIN Oxycodone [From Percocet] Allergy DRY THROAT Verified 06/10/17 13:54 Penicillins Allergy Hives Verified 06/10/17 13:54 rofecoxib [From Vioxx] Allergy Hives Verified 06/10/17 13:54 shellfish derived Allergy Anaphylaxis Verified 06/10/17 13:54 [place] Allergy Anaphylaxis Verified 06/10/17 13:54 Sulfa (Sulfonamide Allergy HIVES, Verified 06/10/17 13:54 Antibiotics) DIFFICULTY IN BREATHE fentanyl AdvReac Mild Itching Verified 06/10/17 16:51 morphine AdvReac HALLUCINATE Verified 06/10/17 13:54 - Respiratory Orders None Smoking Cessation: Smoking cessation has been advised. For more information, call the [place] Tobacco Quit Line at 9-567-PEMP-NOW. - Ancillary Orders May use pressure relief devices daily prn, May consult with Dentist, Datastage Architect, Hair And Makeup Designer PRN - Advance Directives Code Status: Full Code - Mobility Orders Chair, Ambulate, Other (Non weight bearing R leg) - Rehabiliation Orders Rehab Potential: Good Rehab Orders: Evaluation for Physical Therapy, Evaluation for Occupational Therapy - Treatments Skin tear care topically daily PRN per policy, May check for fecal impaction rectally daily PRN, Fleet enema rectally every other day PRN cleansing purposes - Diet Orders Cardiac CERTIFICATION: I certify that the transfer of the above named patient to an Extended Care Facility is necessary for the continuing treatment of the diagnosis listed. The above information is true and accurate reflection of patient's current condition. Confidential - Redisclosure prohibited without a patient's written consent.
[2017-06-15] MEDS: Ketorolac 15 MG/ML VIAL IVP PRN ×2 (00:52→11:08)
[2017-06-15] MEDS: *HR* HYDROmorphone 2 MG TABLET PO PRN ×4 (03:14→19:50)
[2017-06-15] MEDS: *HR* Heparin 5,000 UNIT/ML VIAL SQ SCH ×3 (05:28→22:04)
[2017-06-15] MEDS: Aspirin 81 MG TAB.CHEW PO SCH (09:02)
[2017-06-15] MEDS: clonazePAM 1 MG TABLET PO PRN (11:08)
--- NOTE | 2017-06-15 18:52 | Event Note ---
Date of Encounter: 06/15/17 Time of Encounter: 11:00 Patient awaiting placement for ECF pending insurance
[2017-06-16] MEDS: *HR* Heparin 5,000 UNIT/ML VIAL SQ SCH ×2 (05:32→13:20)
[2017-06-16] MEDS: *HR* HYDROmorphone 2 MG TABLET PO PRN ×2 (05:33→10:07)
[2017-06-16 06:28] VITALS: BP 125/71
[2017-06-16] MEDS: Aspirin 81 MG TAB.CHEW PO SCH (08:47)
[2017-06-16 11:09] LABS: Basophils % 0.2 %; Eosinophils # 0.2 K/mcL (0.0-0.6); Eosinophils % 2.7 %; Hematocrit 41.8 % (35.3-44.9); Hemoglobin 12.7 g/dL (11.5-15.4); Immature Granulocytes % 0.3 % (0-4); Lymphocytes # 2.8 K/mcL (0.6-4.6); Lymphocytes % 31.4 %; Mean Corpuscular HGB Conc 30.4 g/dL (31.6-35.5); Mean Corpuscular Hemoglobin 28.2 pg (28.0-33.3); Mean Corpuscular Volume 92.9 fL (83.0-100.0); Mean Platelet Volume 9.1 fL (9.4-12.4); Monocytes # 0.6 K/mcL (0.0-1.3); Monocytes % 6.3 %; Neutrophils # 5.2 K/mcL (1.6-8.9); Nucleated Red Blood Cells 0.2 /100 WBC (0); Platelet Count 295 K/mcL (140-400); Red Cell Distribution Width 15.4 % (11.5-14.5); Segmented Neutrophils % 59.1 %
[2017-06-16 11:15] LABS: BUN/Creatinine Ratio 20 (6-26); Blood Urea Nitrogen 18 mg/dL (8-23); Carbon Dioxide 26 mEq/L (23-29); Chloride 107 mEq/L (98-107); Glucose 106 mg/dL (70-105); Osmolality,Calculated 290 (280-300); Potassium 3.7 mEq/L (3.5-5.1); Sodium 139 mEq/L (136-145); eGFR For African Americans > 60 (> 60); eGFR For Non-African Americans > 60 (> 60)
[2017-06-16] MEDS: clonazePAM 1 MG TABLET PO PRN (13:19)
--- NOTE | 2017-06-16 15:07 | Event Note ---
Date of Encounter: 06/16/17 Time of Encounter: 11:00 Patient has been accepted to ECF and bed available today Additional scripts written and patient discharged
== END 2017-06-16 13:55 | DRG 494 ==
LOC: 3NENU 12:24 → EMEROO 12:24 → SUATTDRO 14:31 → 3NENU 14:37 → SUATTDRO 06-12 18:17
PROVIDERS: ADMIT Internal Medicine; ATTEND Hospitalist